=== PATIENT | female | born 1970 | race Hispanic/Latino ===

== ENCOUNTER 2021-09-17 16:20 | Emergency (ER) | payer OTHER ==
[2021-09-17 16:33] VITALS: BP 128/82
--- NOTE | 2021-09-17 17:18 | XRay Report ---
RIGHT ANKLE 3 VIEWS INDICATION / CLINICAL INFORMATION: [place] with right ankle injury 3 hours ago. COMPARISON: None available. FINDINGS: BONES / JOINT(S): A metallic plate and screws transfix the distal fibula and 2 metallic screws transf ix the medial malleolus. There is a moderate plantar calcaneal spur. I see no evidence of acute fract ure or subluxation. SOFT TISSUES: No significant abnormality. ADDITIONAL FINDINGS: None. Signer Name: Hay Clay MD Signed: 09/17/2021 5:14 PM Workstation Name: [email or web address]
--- NOTE | 2021-09-17 17:21 | Emergency Department Report ---
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 She has had prior surgery to the ankle. Pain is worse with movement and ambulation. X-ray was done as part of triage protocol. There is no acute fracture. Patient neurovascularly and peripheral vascularly intact. MD Complaint: ankle injury -: Sudden, hour(s) Type of Injury: inversion Place: work Severity: moderate Severity scale (0 -10): 4 Improves With: immobilization Worsens With: weight bearing, movement - Related Data Allergies Allergy/AdvReac Type Severity Reaction Status Date / Time No Known Allergies Allergy Verified 09/17/21 16:33 ED Review of Systems ROS: Stated complaint: RT ANKLE INJURY Other details as noted in HPI Comment: All other systems reviewed and negative ED Past Medical Hx - Past Medical History Previous Medical History?: No - Surgical History Past Surgical History?: Yes - Family History Family history: no significant - Social History Smoking Status: Never Smoker Substance Use Type: Alcohol ED Physical Exam - General Limitations: No Limitations General appearance: alert, in no apparent distress - Head Head exam: Present: atraumatic, normocephalic - Eye Eye exam: Present: normal appearance - ENT ENT exam: Present: mucous membranes moist - Neck Neck exam: Present: normal inspection - Respiratory Respiratory exam: Present: normal lung sounds bilaterally. Absent: respiratory distress - Cardiovascular Cardiovascular Exam: Present: regular rate, normal rhythm. Absent: systolic murmur, diastolic murmur, rubs, gallop - GI/Abdominal GI/Abdominal exam: Present: soft, normal bowel sounds - Extremities Exam Extremities exam: Present: normal inspection - Back Exam Back exam: Present: normal inspection - Neurological Exam Neurological exam: Present: alert, oriented X3 - Psychiatric Psychiatric exam: Present: normal affect, normal mood - Skin Skin exam: Present: warm, dry, intact, normal color. Absent: rash ED Course Vital Signs 09/17/21 16:31 Pulse Rate 77 Blood Pressure 128/82 [Left] O2 Sat by Pulse 99 Oximetry ED Lower Extremity MDM - Radiology Data Radiology results: report reviewed, image reviewed nap - Medical Decision Making X-ray noted. There is no acute process. Patient has had prior surgery to the ankle. There is minimal lateral malleoli are swelling on exam. Patient is already wrapped in an [place]om. Patient will be placed on crutches. Patient is a [employer] attendant for [employer] and will be discharged home hopefully in an attempt to get to a flight at 8 PM [facility]. She is based out of [place]. A copy of patient's x-ray has been requested and will be sent with her. Patient medicated for pain Vital Signs 09/17/21 16:31 Pulse Rate 77 Blood Pressure 128/82 [Left] O2 Sat by Pulse 99 Oximetry Patient being discharged home with discharge plan of care including diet, activity, medications and follow-up. She verbalizes understanding of plan of care - Differential Diagnosis ro fx Critical care attestation.: If time is entered above; I have spent that time in minutes in the direct care of this critically ill patient, excluding procedure time. ED Disposition Clinical Impression: Ankle sprain Qualifiers: Encounter type: initial encounter Laterality: right Disposition: 01 HOME / SELF CARE / HOMELESS Is pt being admited?: No Does the pt Need Aspirin: No Condition: Stable Instructions: Ankle Sprain, [id number] Additional Instructions: Rest, ice, elevate. Follow-up with orthopedics when you get home [id number] Tylenol or Motrin can be used for your pain. Use crutches to prevent weightbearing to help with pain and discomfort Referrals: GIRISH ACHARYA MD [Staff Physician] - 3-5 Days Forms: Work/School Release Form(ED) Time of Disposition: 17:21
[2021-09-17] MEDS ORDERED: IBUPROFEN 800 MG TAB PO ONE (17:29)
[2021-09-17] MEDS ORDERED: HYDROcodone/ACETAMINOPHEN 5-325 MG TAB PO ONE (17:29)
== END 2021-09-17 18:02 | disposition home or self-care (01) ==
LOC: ED 16:20
DX: S93.401A Sprain of unspecified ligament of right ankle, initial encounter (principal); Z98.890 Other specified postprocedural states; X58.XXXA Exposure to other specified factors, initial encounter; Y93.89 Activity, other specified; Y92.89 Other specified places as the place of occurrence of the external cause; Y99.8 Other external cause status
CPT/HCPCS: 99284